=== PATIENT | male | born 1965 | race Caucasian/White ===

== ENCOUNTER → 2017-06-30 10:56 | Outpatient (CLI) | payer BC, SELFPAY ==
--- NOTE | 2017-06-30 11:02 | XR_ITS ---
XR KUB HISTORY: Follow-up kidney stone ITS.REASON: KIDNEY STONE ORDERING PHYSICIAN: Zenon Barajas MD PATIENT AGE: 52 years COMPARISON: 07/01/2016 FINDINGS: The bowel gas pattern is unremarkable. No obvious obstruction.. There is a moderate amount of gas and stool overlying the renal outlines which could obscure small stones. No definite renal or ureteral calculi evident. An epidural stimulator device is present with the generator pack over the left iliac fossa. Small bone island is present in the left femoral neck. IMPRESSION: No obvious renal calculi or ureteral calculi apparent
[2017-06-30 16:27] LABS: Prostate Specific Ag Screen 0.2 ng/mL (0.0-4.0)
== END ==
PROVIDERS: PCP Family Medicine; Visit Provider Urology
DX: N20.0 Calculus of kidney (principal)
CPT/HCPCS: 36415; 74018; G0103

== ENCOUNTER → 2018-06-29 11:02 | Outpatient (CLI) | payer BC, SELFPAY ==
--- NOTE | 2018-06-29 11:06 | XR_ITS ---
XR KUB HISTORY: Kidney stones ITS.REASON: Stones ORDERING PHYSICIAN: Zenon Barajas MD PATIENT AGE: 53 years COMPARISON: 06/30/2017 FINDINGS: There is a mild amount of stool overlying both kidneys obscuring the renal outlines. No obvious renal calculi are evident. There is an epidural stimulator device with the power pack overlying the left ilium. The tip of the epidural stimulator is not visible on the study over the lower thoracic spine. There is a small bone island in the left femoral neck IMPRESSION: No obvious renal or ureteral calculi.
[2018-06-29 14:30] LABS: Prostate Specific Ag, Diagnost 0.27 ng/mL (0.0-4.0)
== END ==
PROVIDERS: PCP Family Medicine; Visit Provider Urology
DX: N20.0 Calculus of kidney (principal); N40.0 Benign prostatic hyperplasia without lower urinary tract symptoms
CPT/HCPCS: 36415; 74018; 84153

== ENCOUNTER → 2020-04-06 12:06 | Outpatient (CLI) | payer MEDICARE, BC, SELFPAY ==
[2020-04-09 10:41] LABS: Covid-19 Nasal PCR Sendout P&C POSITIVE
== END ==
PROVIDERS: PCP Family Medicine; Visit Provider Family Medicine
DX: U07.1 COVID-19 (principal)
CPT/HCPCS: U0004